=== PATIENT | male | born 1960 | race Two or more races ===

== ENCOUNTER 2025-01-03 12:08 | Emergency (ER) | payer MEDICAID, OTHER ==
[~2025-01-03] VITALS: Ht 170.2 cm; Wt 100.0 kg
[2025-01-03 12:48] VITALS: PULSE 116; RESP 27; O2SAT 90
[2025-01-03 13:09] LABS: Hematocrit 41.0 % (41.0-53.0); Hemoglobin 14.7 g/dL (13.5-17.5); Mean Corpuscular Hemoglobin 32.5 pg (28.0-32.0); Mean Corpuscular Volume 90.5 fL (80.0-100.0); Nucleated Red Blood Cells % 0.0 %
[2025-01-03 13:23] LABS: Albumin 4.5 g/dL (3.2-4.8); Alkaline Phosphatase 113 U/L (46-116); Anion Gap 13 (5-15); BUN/Creatinine Ratio 13.6 (10.0-20.0); Calcium 9.0 mg/dL (8.7-10.4); Carbon Dioxide 24 mmol/L (20-31); Chloride 98 mmol/L (98-107); Potassium 3.6 mmol/L (3.5-5.1); Total Protein 6.8 g/dL (5.7-8.2)
--- NOTE | 2025-01-03 13:26 | ED.PDOC ---
History of Present Illness HPI Comments 64 y/o obese M, with a history of DM and HTN, is BIBA from PCP office for c/c hypotension. Patient endorses on being found hypotensive at his PCP's office appointment, today, when seen for f/u for gallstones he was diagnosed with at [facility] ER for abdominal pain on 12/31/24. Per EMS report, initial blood pressure readings of 80's/60's and a tachycardic rate in the 130's. No endorsement of any chest pain, shortness of breath, nausea, vomiting, or further associated symptoms. Chief Complaint: Abdominal Pain Time Seen by MD: 12:10 Reviewed Notes: Nurses Notes, Glove [employer] And Former Notes, Medications, Allergies Allergies: Coded Allergies: NO KNOWN ALLERGIES (Unverified , 01/03/25) Information Source: Patient, Emergency Med Personnel Mode of Arrival: EMS Severity: Moderate Past Medical History PAST MEDICAL HISTORY: Gallstones Surgical History: Denies all surgeries Family History Family History: Unknown Social History Smoker: Non-Smoker Alcohol: Denies ETOH Use Drugs: Denies Drug Use Lives In: Home All Other Systems: Reviewed and Negative (Comprehensive systems review obtained and negative except for what is stated in the HPI.) Physical Exam General Appearance: Moderate Distress HEENT: Normal ENT Inspection, Pharynx Normal, TMs Normal Neck: Full Range of Motion, Non-Tender, Normal, Normal Inspection Respiratory: Chest Non-Tender, Lungs Clear, No Accessory Muscle Use, No Respiratory Distress, Normal Breath Sounds Cardiovascular: No Edema, No JVD, No Murmur, No Gallop, Normal Peripheral Pulses, Regular Rate/Rhythm Breast Exam: Deferred Gastrointestinal: No Organomegaly, Non Tender, No Pulsatile Mass, Normal Bowel Sounds, Soft Genitalia: Deferred Pelvic: Deferred Rectal: Deferred Extremities: No calf tenderness, Normal capillary refill, Normal inspection, Normal range of motion, Non-tender, No pedal edema Musculoskeletal : Apperance: Normal Neurologic: Alert, 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 Was a procedure done?: No EKG EKG : Pulse Rate (adult): 132 [place]: Normal Cardiac Rhythm: ST Block: None Hypertrophy: None ST: Normal Differential Dx Considerations may include: cholelithiasis, hypotension, dehydration, electrolyte imbalance, cholecystitis, among others X-Ray, Labs, Meds, VS Vital Signs Date Time Temp Pulse Resp B/P (MAP) Pulse Ox O2 Delivery O2 Flow Rate FiO2 01/03/25 13:26 132 01/03/25 12:14 97.5 138 18 98/60 100 97.5 01/03/25 12:11 132 Lab Test 01/03/25 13:43 01/03/25 12:38 Range/Units Lactic Acid Level 1.0 0.4-2.0 mmol/L White Blood Count 10.8 4.4-10.8 10^3/uL Red Blood Count 4.53 4.5-5.90 10^6/uL Hemoglobin 14.7 13.5-17.5 g/dL Hematocrit 41.0 41.0-53.0 % Mean Corpuscular Volume 90.5 80.0-100.0 fL Mean Corpuscular Hemoglobin 32.5 H 28.0-32.0 pg Mean Corpuscular Hemoglobin Concent 35.9 32.0-36.0 g/dL Red Cell Distribution Width 13.7 11.8-14.3 % Platelet Count 177 140-450 10^3/uL Mean Platelet Volume 9.1 6.9-10.8 fL Neutrophils (%) (Auto) 83.4 H 37.0-80.0 % Lymphocytes (%) (Auto) 7.2 L 10.0-50.0 % Monocytes (%) (Auto) 8.8 0.0-12.0 % Eosinophils (%) (Auto) 0.3 0.0-7.0 % Basophils (%) (Auto) 0.3 0.0-2.0 % Neutrophils # (Auto) 9.0 H 1.6-8.6 10 ^3/uL Lymphocytes # (Auto) 0.8 0.4-5.4 10 ^3/uL Monocytes # (Auto) 0.9 0-1.3 10 ^3/uL Eosinophils # (Auto) 0 0-0.8 10 ^3/uL Basophils # (Auto) 0 0-0.2 10 ^3/uL Nucleated Red Blood Cells 0.0 % Sodium Level 135 L 136-145 mmol/L Potassium Level 3.6 3.5-5.1 mmol/L Chloride Level 98 98-107 mmol/L Carbon Dioxide Level 24 20-31 mmol/L Anion Gap 13 5-15 Blood Urea Nitrogen 29 H 9-23 mg/dL Creatinine 2.13 H 0.700-1.30 mg/dL Glomerular Filtration Rate Calc 34 >90 mL/min BUN/Creatinine Ratio 13.6 10.0-20.0 Serum Glucose 151 H 74-106 mg/dL Calcium Level 9.0 8.7-10.4 mg/dL Total Bilirubin 2.2 H 0.2-1.0 mg/dL Aspartate Amino Transferase (AST) 163 H 13-40 U/L Alanine Aminotransferase (ALT) 167 H 7-40 U/L Alkaline Phosphatase 113 46-116 U/L Total Protein 6.8 5.7-8.2 g/dL Albumin 4.5 3.2-4.8 g/dL Lipase 49 12-53 U/L Current Medications Medications (Trade) Dose Ordered Sig/Fabian Route Start Time Stop Time Status Last Admin Sodium Chloride 1,000 ml @ 1,000 mls/hr Q1H ONCE IV 01/03/25 12:15 01/03/25 13:14 DC 01/03/25 13:48 Ondansetron HCl (Zofran) 4 mg ONCE ONCE IV 01/03/25 12:15 01/03/25 12:16 DC 01/03/25 13:58 Ketorolac Tromethamine (Toradol Injection) 30 mg ONCE ONCE IV 01/03/25 12:15 01/03/25 12:17 DC 01/03/25 13:57 Piperacillin Sod/ Tazobactam Sod 100 ml @ 100 mls/hr ONCE ONCE IV 01/03/25 13:30 01/03/25 14:29 DC 01/03/25 15:12 Metronidazole 100 ml @ 100 mls/hr ONCE ONCE IV 01/03/25 13:30 01/03/25 14:29 DC 01/03/25 13:53 Patient alert. Complaining of abdominal pain. Liver enzymes elevated. Vitals stable. WBC within normal limits. Possible sepsis. Establish intravenous access. Was given fluids. Was given fluids. Tachycardia. Hypotensive. Was given Zosyn. Was given Flagyl. Possible cholecystitis. Unstable for transfer. Explained to the patient. [facility] approved inpatient admission [id number]. Time of 1ST Reevaluation: 12:40 Reevaluation 1ST: Unchanged Patient Education/Counseling: Diagnosis, Treatment Family Education/Counseling: No Family Present SEPSIS Sepsis Screen Date sepsis recognized/suspect: Jan 03, 2025 Time Sepsis recognized/suspect: 1216 Recent Procedure: No On Antibiotic Therapy: No Respiratory Rate >20: No Heart Rate >90: Yes Temp<36 C (96.8 F) or >38.3 C: No SBP <90 or MAP <65 mmHG: No New Acute Mental Status Change: No Is the patient on CPAP, BIPAP,: No Physician Orders Gallbladder (01/03/25 12:12) Electrocardigram (01/03/25 12:15) Blood Culture (01/03/25 13:30) Sodium Chloride 0.9% (01/03/25 13:30) Vital Signs Date Time Temp Pulse Resp B/P (MAP) Pulse Ox O2 Delivery O2 Flow Rate FiO2 01/03/25 13:26 132 01/03/25 12:14 97.5 138 18 98/60 100 97.5 01/03/25 12:11 132 Laboratory Tests Test 01/03/25 12:38 01/03/25 13:43 White Blood Count 10.8 10^3/uL (4.4-10.8) Lactic Acid Level 1.0 mmol/L (0.4-2.0) Medications Medications Dose Ordered Sig/Fabian Route Start Time Stop Time Status Last Admin Dose Admin Ketorolac Tromethamine 30 mg ONCE ONCE IV 01/03/25 12:15 01/03/25 12:17 DC 01/03/25 13:57 Metronidazole 100 ml @ 100 mls/hr ONCE ONCE IV 01/03/25 13:30 01/03/25 14:29 DC 01/03/25 13:53 Ondansetron HCl 4 mg ONCE ONCE IV 01/03/25 12:15 01/03/25 12:16 DC 01/03/25 13:58 Piperacillin Sod/ Tazobactam Sod 100 ml @ 100 mls/hr ONCE ONCE IV 01/03/25 13:30 01/03/25 14:29 DC 01/03/25 15:12 Sodium Chloride 1,000 ml @ 1,000 mls/hr Q1H ONCE IV 01/03/25 12:15 01/03/25 13:14 DC 01/03/25 13:48 Departure 1 Departure Time of Disposition: 13:30 Impression: Primary Impression: Hypotension Qualified Codes: I95.9 - Hypotension, unspecified Additional Impressions: Sepsis Qualified Codes: A41.9 - Sepsis, unspecified organism Acute cholecystitis Disposition: ADMITTED INPATIENT Admit to: Med Surg Condition: Guarded Critical Care Note Critical Care Time?: Yes (90 min-critical care time only) Stability Stability form required: No Heart Score Heart Score: Heart Score Response (Comments) Value History Slightly Suspicious 0 EKG Normal 0 Age 45-64 1 Risk Factors >3 or Hx ASHD 2 Troponin Normal limit 0 Total 3 I personally scribed for CELESTE BANEGAS MD ([email or web address]) on 01/03/25 at 13:26. Electronically submitted by Alonso Green [email or web address]). CELESTE BANEGAS MD Jan 03, 2025 13:26
[2025-01-03 13:27] LABS: Alanine Aminotransferase 167 U/L (7-40); Bilirubin, Total 2.2 mg/dL (0.2-1.0); Blood Urea Nitrogen 29 mg/dL (9-23); Glucose 151 mg/dL (74-106); Sodium 135 mmol/L (136-145)
[2025-01-03] MEDS: SODIUM CHLORIDE 0.9% 1,000 ML IV ONE ×3 (13:30→18:27)
[2025-01-03 13:50] LABS: Lipase 49 U/L (12-53)
[2025-01-03] MEDS: KETOROLAC TROMETH 30 MG/ML 1ML VIAL IV ONE (13:57)
--- NOTE | 2025-01-03 13:57 | DVH ---
ULTRASOUND ABDOMEN, LIMITED RIGHT UPPER QUADRANT: REASON FOR EXAM: Cholecystitis. Right upper quadrant pain. TECHNIQUE: Real-time sector scans in the transverse and longitudinal planes were obtained through th e right upper quadrant of the abdomen. FINDINGS: The liver is of normal size and contour. There is hepatopetal flow in the portal vein. The re is no intrahepatic nor extrahepatic biliary ductal dilatation. The common bile duct measures 5 mm . There are gallstones. The gallbladder wall is thickened at 5.5 mm. There is pericholecystic fluid. There is no sonographic Reese's sign. The pancreas is obscured by bowel gas. The right kidney measures 10.8 cm. No hydronephrosis or nephrolithiasis is identified. There is no evidence of right renal mass or cyst. The visualized portions of the abdominal aorta demonstrate no evidence of aneurysmal dilatation. The visualized inferior vena cava is unremarkable. IMPRESSION: Cholelithiasis with gallbladder wall thickening and pericholecystic fluid. Highly suspicious for acu te versus chronic cholecystitis. There is no sonographic reese's sign at the time of examination but this can be masked if the patient has received any pain medication. Correlate clinically and with ph ysical exam. Nuclear medicine HIDA scan may be helpful.
[2025-01-03] MEDS: ONDANSETRON HCL 4 MG/2 ML VIAL IV ONE (13:58)
[2025-01-03 15:00] VITALS: TEMP 98.6
[2025-01-03] MEDS: PIPERACILLIN-TAZOB 3.375GM 100 ML IV ONE (15:12)
[2025-01-03 16:28] LABS: Urine Budding Yeast OCCASIONAL /hpf (None Seen); Urine Epithelial Cast FEW /hpf (<5); Urine Protein, UAD TRACE (Negative)
[2025-01-03] MEDS ORDERED: MORPHINE SULFATE INJ 2 MG/ml SYRG IV PRN (19:45)
[2025-01-03] MEDS ORDERED: SODIUM CHLORIDE 0.9% 1,000 ML IV ONE (19:45)
[2025-01-03] MEDS ORDERED: PANTOPRAZOLE 40 MG/10 ML VIAL INJ IV ONE (19:45)
[2025-01-03] MEDS ORDERED: ONDANSETRON HCL 4 MG/2 ML VIAL IV PRN (19:45)
[2025-01-03 20:02] VITALS: BP 108/59; PULSE 114; RESP 21; O2SAT 91
[2025-01-04] MEDS ORDERED: PANTOPRAZOLE 40 MG/10 ML VIAL INJ IV SCH (10:00)
--- NOTE | 2025-01-17 16:22 | ECG ---
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
== END 2025-01-03 20:20 | disposition left against medical advice (07) ==
LOC: ER 12:08 → EDBD 12:08 → OVERFLOW 19:35 → UNDOADMIN 19:35 → UNDODISIN 20:20
DX: A41.9 Sepsis, unspecified organism (principal); K81.9 Cholecystitis, unspecified
CPT/HCPCS: 36415; 76705; 80053; 81001; 82247; 83605; 83690; 85025; 87040; 93005; 96361; 96365; 96367; 96375; 99291; 99292; J1885; J2405; J2543; J3490; J7030; 96366; G0378